=== PATIENT | female | born 1970 | race Caucasian/White ===

== ENCOUNTER 2016-12-02 13:47 | Observation (INO) | payer OTHER ==
[~2016-12-02] VITALS: Ht 167.6 cm; Wt 55.6 kg
[2016-12-02 15:49] LABS: HEMOGLOBIN 14.5 gm/dl (12.3-15.3); RED BLOOD COUNT 4.87 M/UL (4.00-5.10); WHITE BLOOD COUNT 24.3 K/UL (4.5-11.0)
[2016-12-02 16:09] LABS: BUN/CREATININE RATIO 14 (0-10)
[2016-12-03 07:33] LABS: HEMOGLOBIN 11.8 gm/dl (12.3-15.3); RED BLOOD COUNT 4.06 M/UL (4.00-5.10); WHITE BLOOD COUNT 16.9 K/UL (4.5-11.0)
[2016-12-03] MEDS ORDERED: KEFLEX500 MG PO (16:17)
[2016-12-03] MEDS ORDERED: NORCO 10-325 T1 EACH PO (16:17)
[2017-01-26] MEDS ORDERED: PERCOCET 10-321 EACH PO (17:27)
== END 2016-12-03 17:00 | disposition home or self-care (01) ==
LOC: ER1 13:47 → MED SURG 4 17:45 → ZEROF 17:45 → MED SURG 4 17:45
PROVIDERS: Physician Assistant Medical; Plastic Surgery; ADMIT Obstetrics & Gynecology
PROC: 0UBL0ZZ Excision of Vestibular Gland, Open Approach (ICD-10-PCS; principal; 2016-12-03 07:45)
DX: N75.1 Abscess of Bartholin's gland (principal); F17.210 Nicotine dependence, cigarettes, uncomplicated; Z98.51 Tubal ligation status; Z79.899 Other long term (current) drug therapy
CPT/HCPCS: 36415; 80053; 83605; 84703; 85025; 86140; 87040; 87070; 87205; 96361; 96365; 96366; 96375; 99284; G0378; J0690; J1335; J1885; J2250; J2405; J3370; J7030; J7050; J7070; J7120; Q9962

== ENCOUNTER 2020-09-10 10:49 | Emergency (ER) | payer SELFPAY ==
[~2020-09-10 10:49] MED LIST: BACTRIM DS TAB1 EACH PO; IBUPROFEN600 MG PO; KEFLEX500 MG PO; NORCO 10-325 T1 EACH PO; NORCO 5-325 TA1 EACH PO; PERCOCET 10-321 EACH PO
== END 2020-09-10 11:15 | disposition left against medical advice (07) ==
LOC: ER1 10:49
DX: Z53.21 Procedure and treatment not carried out due to patient leaving prior to being seen by health care provider (principal)

== ENCOUNTER 2021-07-29 07:01 | Emergency (ER) | payer MEDICAID ==
[2021-07-29 07:46] LABS: HEMOGLOBIN 13.2 gm/dl (12.3-15.3); RED BLOOD COUNT 4.37 M/UL (4.00-5.10); WHITE BLOOD COUNT 12.8 K/UL (4.5-11.0)
[2021-07-29] MEDS ORDERED: BACTRIM DS TAB1 EACH PO (11:20)
== END 2021-07-29 11:50 | disposition home or self-care (01) ==
LOC: ER1 07:01
PROVIDERS: Nurse Practitioner
DX: N89.8 Other specified noninflammatory disorders of vagina (principal); F17.210 Nicotine dependence, cigarettes, uncomplicated
CPT/HCPCS: 76830; 81001; 82150; 83690; 85025; 87086; 96374; 99284; J1885; Q9967